=== PATIENT | male | born 1955 | race Caucasian/White ===

== ENCOUNTER → 2017-01-01 | Outpatient (CLI) | payer OTHER | LOC: HEART 5 15:15 | DX: R06.02 Shortness of breath (principal) | CPT/HCPCS: 94060 ==

== ENCOUNTER 2021-04-26 19:12 | Emergency (ER) | payer OTHER ==
[2021-04-26] MEDS ORDERED: PREDNISONE 50 M50 MG PO (19:24)
== END 2021-04-26 20:01 | disposition home or self-care (01) ==
LOC: ER1 19:12
DX: R21 Rash and other nonspecific skin eruption (principal); Z95.5 Presence of coronary angioplasty implant and graft
CPT/HCPCS: 99282

== ENCOUNTER → 2021-12-25 | Outpatient (CLI) | payer MEDICARE ==
[~2021-12-25] MED LIST: DOXYCYCLINE HY100 MG PO; PREDNISONE 20 M20 MG PO; PREDNISONE 50 M50 MG PO; PROAIR HFA8.5 GM INH
== END ==
LOC: NM 11-30 10:00
DX: R06.02 Shortness of breath (principal); R94.39 Abnormal result of other cardiovascular function study
CPT/HCPCS: 78452; 93017; A9502; J2785

== ENCOUNTER → 2022-06-12 | Outpatient (CLI) | payer MEDICARE | LOC: ECHO 08:30 → NM 09:00 | DX: I25.119 Atherosclerotic heart disease of native coronary artery with unspecified angina pectoris (principal); R06.02 Shortness of breath; R94.39 Abnormal result of other cardiovascular function study; I11.9 Hypertensive heart disease without heart failure | CPT/HCPCS: ECHO; 78452; 93017; 93306; A9502; J2785 ==